=== PATIENT | female | born 1960 | race Caucasian/White ===

== ENCOUNTER → 2019-09-04 | Outpatient (REF) ==
[2019-09-05 13:50] LABS: RUBELLA IgG QUALITATIVE IMMUNE (IMMUNE)
== END ==
LOC: M LAB 08:04
PROVIDERS: ATTEND Nurse Practitioner Adult Health
DX: Z00.00 Encounter for general adult medical examination without abnormal findings (principal)

== ENCOUNTER → 2020-03-13 | Outpatient (CLI) | payer BC ==
--- NOTE | 2020-03-13 15:03 | REP ---
LEFT FOOT SERIES: Four views. HISTORY: Pain in the left foot and toes. FINDINGS: Four views of the left foot demonstrate overall normal mineralization. A small os naviculare and an ounce perineum are seen. There is a small plantar calcaneal spur. There is no evidence of fracture or other acute bony abnormality. Degenerative changes are seen at the 1st MTP joint. IMPRESSION: No acute bony abnormality. Osteoarthritic changes at the 1st MTP joint. Small heel spur. Electronically Signed by Krish Ruvalcaba MD 03/13/2020 03:07 P
== END ==
LOC: M RAD 12:53
PROVIDERS: ATTEND Nurse Practitioner Adult Health
DX: M79.672 Pain in left foot (principal); M79.675 Pain in left toe(s); M77.32 Calcaneal spur, left foot; M19.072 Primary osteoarthritis, left ankle and foot

== ENCOUNTER → 2020-11-13 | Outpatient (REF) | payer BC | LOC: M LAB REF 08:21 | PROVIDERS: ATTEND Radiology Diagnostic Radiology | DX: N63.11 Unspecified lump in the right breast, upper outer quadrant (principal) ==

== ENCOUNTER → 2020-11-21 | Outpatient (CLI) | payer BC | LOC: M PLALAB 08:08 | PROVIDERS: ATTEND Surgery | DX: Z13.79 Encounter for other screening for genetic and chromosomal anomalies (principal) ==

== ENCOUNTER → 2020-11-21 | Outpatient (REF) | payer BC ==
[2020-11-21 12:26] LABS: BLOOD UREA NITROGEN 16 MG/DL (7-18); CALCIUM LEVEL 9.4 MG/DL (8.8-10.2); CARBON DIOXIDE LEVEL 30 MEQ/L (21-32); CHLORIDE LEVEL 105 MEQ/L (98-107); CREATININE FOR GFR 0.84 MG/DL (0.55-1.30); GLOMERULAR FILTRATION RATE > 60.0 (>45); GLUCOSE, FASTING 93 MG/DL (70-100); POTASSIUM SERUM 3.9 MEQ/L (3.5-5.1); SODIUM LEVEL 139 MEQ/L (136-145)
== END ==
LOC: M PLALAB 08:07
PROVIDERS: ATTEND Surgery
DX: C50.911 Malignant neoplasm of unspecified site of right female breast (principal)

== ENCOUNTER → 2020-11-28 | Outpatient (CLI) | payer BC ==
[~2020-11-28] MED LIST: PROHANCE 279.3MG/ML 15ML VIAL As Ordered ONE; PROHANCE 279.3MG/ML 5ML VIAL As Ordered ONE
--- NOTE | 2020-11-28 17:07 | REP ---
INDICATION: MRI CLEARENCE. History of stapedectomy, middle ear surgery. COMPARISON: None. TECHNIQUE: PA and lateral views of the sinuses and head and neck region are performed. FINDINGS: No metallic foreign body is seen in the region of either petrous bone or middle ear. No intraorbital or other opaque foreign body is seen. Cleared for MRI. IMPRESSION: No metallic foreign body seen. <Electronically signed by Devin Ruvalcaba > 11/28/20 [id number]
--- NOTE | 2020-12-01 09:54 | REP ---
INDICATION: INVASIVE DUCTAL CARCINOMA RIGHT BREAST. Recent grade 2 invasive ductal carcinoma diagnosis. Evaluate extent of disease COMPARISON: Comparison is made with prior mammography dated October 03, 2020, October 29, 2020, and November 13, 2020. TECHNIQUE: Three Ximena MRI imaging was performed with a dedicated breast coil. Axial, coronal, and sagittal T1 and T2 weighted scans were obtained with and without fat saturation in the usual fashion. The study includes dynamically acquired post gadolinium-enhanced imaging with image subtraction. Maximum intensity projection and multi planar reformation imaging is included as well. This study is interpreted with the aid of VeriTainerD, an FDA approved computer aided detection (CAD) software program, on a dedicated breast MRI workstation. The gadolinium enhancement dose is 19 mL of intravenous ProHance. FINDINGS: There is a mild amount of fibroglandular tissue bilaterally corresponding with the mammographic pattern. There is mild background parenchymal enhancement. There is no evidence of axillary lymphadenopathy or significant breast cystic change. There is a needle biopsy marker clip artifact adjacent to a T2 hyperintense enhancing 10 mm nodule in the left breast superiorly upper outer quadrant corresponding to the stable previously biopsied nodule seen mammographically in 2016. This is compatible with a benign fibroadenoma. No other significant finding is seen in the left breast. On the right, superiorly at 12 o'clock adjacent to another needle biopsy marker clip, there is a suspicious linear area of enhancement and washout with mixed signal intensity on T2 weighted scan at 12 o'clock position in the right breast. This area corresponds to the known malignant lesion recently biopsied. It measures 2.6 cm anteroposterior by 0.5 cm craniocaudal by 0.4 cm right to left. No other suspicious abnormality is noted in the right breast. Subtraction images are otherwise unremarkable. IMPRESSION: BI-RADS category 6 known right breast malignancy. Suspicious biopsied lesion 12 o'clock position right breast. No other suspicious abnormality is seen in either breast on MRI scan. No evidence of adenopathy.. <Electronically signed by Devin Ruvalcaba > 12/01/20 [id number]
== END ==
LOC: M RAD 15:29
PROVIDERS: ATTEND Surgery
DX: C50.911 Malignant neoplasm of unspecified site of right female breast (principal); N63.21 Unspecified lump in the left breast, upper outer quadrant
CPT/HCPCS: 70250; A9576; C8908

== ENCOUNTER → 2020-12-04 | Outpatient (CLI) | payer BC ==
[~2020-12-04] MED LIST changes: +ANOR1AER IN; +CLAR10CA3 PO; +FLON1SPR NARES; -PROHANCE 279.3MG/ML 15ML VIAL As Ordered ONE; -PROHANCE 279.3MG/ML 5ML VIAL As Ordered ONE; +VITMTA PO
--- NOTE | 2020-12-05 03:09 | REPPI ---
INDICATION: Z01.818 PRE OP EXAM COMPARISON: None. TECHNIQUE: PA and lateral. FINDINGS: The mediastinum and cardiac silhouette are normal. The lung granados are clear and without acute consolidation, effusion, or pneumothorax. The skeletal structures are intact and old healed left rib fractures are noted. IMPRESSION: No acute cardiopulmonary process. <Electronically signed by Mitch Andrews > 12/05/20 [id number]
== END ==
LOC: M PLAIMG 14:32
PROVIDERS: ATTEND Surgery
DX: Z01.818 Encounter for other preprocedural examination (principal)

== ENCOUNTER → 2020-12-04 | Outpatient (CLI) | payer BC ==
--- NOTE | 2020-12-05 05:52 | REP ---
INDICATION: R59.9 PALPABLE LYMPH NODE COMPARISON: None. TECHNIQUE: Banegas scale and color B-mode and Doppler ultrasound evaluation of the right neck/palpable mass. FINDINGS: Directed ultrasound examination along the right posterior neck at the site of palpable mass demonstrates a normal appearing lymph node measuring 11 x 10 x 3 mm. Multiple normal bilateral subcentimeter lymph nodes are also identified and similar in morphology. IMPRESSION: Palpable mass corresponds to normal appearing lymph node. <Electronically signed by Mitch Andrews > 12/05/20 05
== END ==
LOC: M WHC 15:01
PROVIDERS: ATTEND Surgery
DX: R59.9 Enlarged lymph nodes, unspecified (principal)

== ENCOUNTER → 2020-12-11 | Outpatient (CLI) | payer BC ==
[~2020-12-11] MED LIST changes: +ULTR50TA8 PO
== END ==
LOC: M LABSMTC 11:53
PROVIDERS: ATTEND Anesthesiology
DX: Z01.818 Encounter for other preprocedural examination (principal); Z11.52 Encounter for screening for COVID-19

== ENCOUNTER 2020-12-16 06:37 | Day surgery (SDC) | payer BC ==
[~2020-12-16] VITALS: Ht 165.1 cm; Wt 84.4 kg
[~2020-12-16 06:37] MED LIST changes: +HEPARIN SOD (PORCINE) 5000UNITS/ML 1ML VIAL/SYRINGE SQ ONE; +LR 1,000 ML IV SCH; -ULTR50TA8 PO; +ceFAZolin SOD 2 GM in IV 1 EA IV ONE
[2020-12-16] MEDS ORDERED: LR 1,000 ML IV ONE (07:00)
[2020-12-16] MEDS ORDERED: LIDOCAINE 1% SDV 30ML VIAL As Ordered ONE (09:47)
[2020-12-16] MEDS ORDERED: BUPIVACAINE HCL 0.25% 30ML VIAL As Ordered ONE (09:47)
[2020-12-16] MEDS ORDERED: LIDOCAINE 2% 100MG/5ML SDV (FOR ANES.) As Ordered ONE (10:30)
[2020-12-16] MEDS ORDERED: fentaNYL 100 MCG/2 ML INJECTION (J3010) As Ordered ONE ×3 (10:30→15:30)
[2020-12-16] MEDS ORDERED: propofoL 200 MG/20 ML VIAL As Ordered ONE (10:30)
[2020-12-16] MEDS ORDERED: MIDAZOLAM INJ 2MG/2ML VIAL (J2250 PER 1MG) As Ordered ONE (10:30)
[2020-12-16] MEDS ORDERED: METOCLOPRAMIDE INJ 10MG/2ML VIAL (J2765 PER 1) As Ordered ONE (10:30)
[2020-12-16] MEDS ORDERED: ONDANSETRON 4MG/2ML VIAL As Ordered ONE (10:30)
[2020-12-16] MEDS ORDERED: dexameTHASONE 4 MG/ML 1ML VIAL (J1100 PER 1MG) As Ordered ONE (10:30)
[2020-12-16] MEDS ORDERED: ROCURONIUM BROMIDE 50 MG/5 ML VIAL As Ordered ONE (10:30)
[2020-12-16] MEDS ORDERED: ACETAMINOPHEN 1000MG 100ML IV BTL (OFIRMEV) (J0131 PER 10MG) As Ordered ONE (10:31)
--- NOTE | 2020-12-16 12:27 | REP ---
INDICATION: BIOPSY LEFT BREAST. COMPARISON: None. TECHNIQUE/RADIOTRACER AND DOSE: This procedure was performed by Jessica Pineda [facility], under the direct supervision of Dr. Ruvalcaba. Images were reviewed with Dr. Ruvalcaba prior to dictation. The risks and benefits of the procedure were explained to the patient and informed consent was obtained both orally and written. Directly prior to the start of the procedure, a formal timeout was done in the exam room. Using topical anesthetic and sterile technique 1.011 mCi of filtered Technetium-99m sulfur colloid was injected subdermally in 8 fractionated periareolar injections. FINDINGS: Images obtained 1 hour after injection show papo uptake in the right axilla. IMPRESSION: Postprocedural imaging shows papo uptake in the right axilla. <Electronically signed by Jessica Pineda > 12/16/20 1051 <Electronically signed by Devin Ruvalcaba > 12/16/20 1226
[2020-12-16] MEDS ORDERED: ULTR50TA8 PO (15:33)
[2020-12-16] MEDS: fentaNYL 100 MCG/2 ML INJECTION (J3010) IV PRN ×4 (15:35→16:20)
[2020-12-16] MEDS ORDERED: oxyCODONE 5MG TAB PO PRN (15:50)
[2020-12-16] MEDS ORDERED: HYDROMORPHONE HCL 0.5 MG/ 0.5 ML SYRINGE (J1170 PER 1) IV PRN (15:50)
[2020-12-16] MEDS ORDERED: ONDANSETRON 4MG/2ML VIAL IV PRN (15:50)
[2020-12-16] MEDS ORDERED: LR 1,000 ML IV SCH (15:50)
--- NOTE | 2020-12-16 16:36 | REP ---
INDICATION: RIGHT BREAST LUMPECTOMY. COMPARISON: Comparison right breast mammography November 13, 2020.. TECHNIQUE: Specimen radiography: Four views including photograph labeled right breast 12 o'clock. FINDINGS: Specimen radiography demonstrates a Acme needle wire localization device and a previously placed needle biopsy marker clip centrally located in the specimen. There appears to be a central slightly spiculated nodule. There also 2 calcifications adjacent to this. IMPRESSION: Specimen radiography shows a needle biopsy marker clip adjacent to the Acme needle localization wire. There also 2 nearby microcalcifications. <Electronically signed by Devin Ruvalcaba > 12/16/20 1600
--- NOTE | 2020-12-16 17:36 | REP ---
INDICATION: WIRE LOCAL BREAST LESION. COMPARISON: Comparison sonography November 13, 2020.. TECHNIQUE: Sonographic guidance. FINDINGS: Ultrasound guidance is provided to Dr. Lopez performed a wire localization procedure at the level of a previously placed HydroMARK marker clip under ultrasound guidance. IMPRESSION: Sonographic guidance. Procedural imaging. <Electronically signed by Devin Ruvalcaba > 12/16/20 0968
[2020-12-16 17:55] VITALS: BP 129/71
--- NOTE | 2020-12-20 23:24 | ROOPDOC ---
[facility] Report Of Operation Report of Operation DATE OF PROCEDURE: 12/16/20 PREPROCEDURE DIAGNOSES: Right breast cancer POSTPROCEDURE DIAGNOSES: Right breast cancer PROCEDURE: Right breast lumpectomy with intraop wire placement and right sentinel lymph node biopsy SURGEON: Dr Jose Venegas ANESTHESIA: general ESTIMATED BLOOD LOSS: minimal COMPLICATIONS: none REMARKS: open coil clop, nodular opacity, calcifications and the wire seen in the specimen, sentinel lymph nodes identified DESCRIPTION OF PROCEDURE: INDICATIONS: Ms. Yola Mercado is a 60-year-old woman who was found to have two new suspicious lesions on screening right breast mammogram. These were evaluated with US and one sonographic correlate was found. US guided biopsy of the 12:00 11 CFN sonographic mass came back as IDC, ER+, AR+, HER-2 negative, grade 2. Open coil clip was placed at this site. The second lesion was evaluated with stereotactic biopsy and came back as benign breast parenchyma with fibrocystic changes. Closed coil clip was placed at this site. Concordance of the biopsy results were confirmed by Dr Banegas from Radiology department. MRI of the breast was done and showed 2.6 cm enhancement around the superficial lesion which was proven to be cancer. No abnormal enhancement around the other lesion. No abnormal lymph nodes were seen. Surgical options were discussed with patient. She opted for breast conservative surgery with sentinel lymph node biopsy on the right. She was medically cleared for surgery by her primary care doctor. Risks and possible complications of surgical procedure including bleeding, in fection and injury to surrounding structures were explained to the patient and she wished to proceed. Consent was signed. My initials were placed on the operative site. Subcutaneous injection of 5000 units of heparin was done in Preop. The injection of radioactive tracer was done in radiology department preoperatively. Lymphoscintigraphy imaging was reviewed in preop. DETAILS: Patient was taken to the operating room and placed on the operating room table. A sign in was called stating patients name, date of and the procedure to be done. Preoperative antibiotics were infused. Smooth induction of general anesthesia was done. Patients hands were extended on arm rests. Care was taken not to over extend the arms. Pillow was placed under the knees and a foam was placed under the heels. Sequential compression devices were placed and assured to function correctly. Procedure was started with right breast intraop wire localization. Appropriate time out was done and patients name, date of , and the procedure to be done were confirmed. Right breast was cleaned by me. Intraoperative ultrasound was used to confirm location of the appropriate Hydromark clip at 12:00 11 CFN marking the location of the cancer. The other Hydromark was also seen in the beast but was not targeted for this procedure due to the benign biopsy results. Location of the 12:00 11 CFN target clip was marked on the skin as well. 21 G Kopans Breast Lesion Localization Needle was used to place 25 cm wire through the clip. The end of the wire was passed a centimeter deep. The images were captured confirming adequate placement of the localizing wire. Leather Polisher luis m sted with the wire placement. Next, patients right breast and axilla were prepped and draped in the usual fashion. Care was taken not to displace the wire. Appropriate time out was done again prior second part of the procedure. Patients name, date of , and the procedure to be done were confirmed. Procedure was started with sentinel lymph node biopsy. Neoprobe was used to locate area of maximum intensity of the signal. Local anesthetic using 1% lidocaine and 0.25 % Marcaine 50/50 mix was injected. An incision was made with scalpel number 15 at the inferior aspect of axillary hair line in the right axilla where the maximum signal was identified. The sharp and blunt dissection was continued through the subcutaneous adipose tissue. Clavipectoral fascia was opened. Neoprobe was used to guide the dissection. A palpable lymph node was identified and excised. This node did not have signal. A cluster of three high signal lymph nodes was identified in deep medial axilla and excised. The ex-vivo 10 second count was [id number]. Another lymph node with high signal was identified slightly lateral and posterior to the excised cluster. The ex-vivo 10 second count was 6624. There was additional area of high signal medially which likely corresponded to the area of cancer located medially to axilla. Another palpable deep axillary lymph node was found in the medial aspect of axilla and was excised. There was no signal associated with this node. 10 second background count prior to lumpectomy in axilla was 1826 and after the lumpectomy was 57. All the lymph node specimens were labeled with patients name and sent to pathology. No additional suspicious palpable lymph nodes were identified. Adequate hemostasis was assured. Additional local anesthetic was injected into surrounding tissues. Wound was irrigated. Clavipectoral fascia was closed with 3-0 Vicryl interrupted suture. Dermal layer was closed at the end of the case with 3-0 Monocryl and skin was closed with 4-0 Monocryl. Surgical glue was applied to the incision at the end of the procedure. Next, our attention was turned toward the right breast. Local anesthetic using 1% lidocaine and 0.25 % Marcaine 50/50 mix was injected at the site of planned periareolar incision. The incision was made with the scalpel. Subcutaneous skin flaps were raised and the guide wire was carefully pulled into the wound. Dissection was carries along the wire until the previously marked on the skin area of target lesion location was encountered. At this point, wider excision of the tissue surrounding the wire was done. The Hydromark clip was identified in the tissue with intraoperative hockey stick ultrasound probe. The end of the wire was identified with palpation. The lumpectomy specimen was carefully removed from the breast keeping its proper orientation and moved to the back table where margins were marked with the surgical inking kit following the standard colors recommendations. The specimen measured 5x 4 cm. Specimen was then placed on the grid and placed in [employer] Specimen Imaging System. The image revealed the wire, the open coil Hydromark clip, a nodular density and some calcifications in the specimen. The specimen was labeled with patients name and right lumpectomy and sent to pathology. Since the clip and nodular density were centrally located in the specimen, no additional margins were taken. Adequate hemostasis was assured. Additional local anesthetic was injected into surrounding tissues. Clips were placed to steve the cavity. space was approximated with 2-0 Vicryl. The dermis was closed with 3-0 Vicryl and skin was closed with 4-0 Monocryl. Surgical glue was placed over the incision. Patient emerged from the anesthesia without any problems. Fluffs were placed over the operative site and patients chest was wrapped snuggly in the KULWANT wrap. Sponge and instrument counts were done and were correct. Patient tolerated procedure well and was taken to recovery unit in stable condition. JOSE VENEGAS DO Dec 20, 2020 23:24
== END 2020-12-16 17:55 | disposition home or self-care (01) ==
LOC: M SDC 06:37
PROVIDERS: ATTEND Surgery
DX: C50.911 Malignant neoplasm of unspecified site of right female breast (principal); C77.3 Secondary and unspecified malignant neoplasm of axilla and upper limb lymph nodes; G43.909 Migraine, unspecified, not intractable, without status migrainosus; J44.9 Chronic obstructive pulmonary disease, unspecified; F41.9 Anxiety disorder, unspecified; Z79.899 Other long term (current) drug therapy; Z88.8 Allergy status to other drugs, medicaments and biological substances; Z88.2 Allergy status to sulfonamides; Z88.1 Allergy status to other antibiotic agents
CPT/HCPCS: 19125; 36415; 38525; 76942; 78195; 86850; 86900; 86901; 88305; 88307; A9541; J0131; J0690; J1100; J1644; J2250; J2405; J2765; J3010

== ENCOUNTER → 2021-01-01 | Outpatient (CLI) | payer BC ==
[~2021-01-01] MED LIST changes: -HEPARIN SOD (PORCINE) 5000UNITS/ML 1ML VIAL/SYRINGE SQ ONE; -LR 1,000 ML IV SCH; +ULTR50TA8 PO; -ceFAZolin SOD 2 GM in IV 1 EA IV ONE
== END ==
LOC: M ONCR 10:16
PROVIDERS: ATTEND Radiology Radiation Oncology
DX: C50.411 Malignant neoplasm of upper-outer quadrant of right female breast (principal)

== ENCOUNTER → 2021-01-21 | Outpatient (CLI) | payer BC ==
[~2021-01-21] MED LIST changes: +ACET-897 PO; +ALBU83IN INH; +COVI100V IM; +LETR2.5T2 PO; +NYST1POW9 TOP
--- NOTE | 2021-01-21 15:56 | DEXAMM ---
INDICATION: BREAST CA/ON ARIMATASE INHIB. COMPARISON: None. TECHNIQUE: Bone density was measured using dual-energy x-ray absorptionmetry (DEXA). FINDINGS: AP SPINE L1-L4 BMD 1.473 g/cm2 Young Adult T-Score 2.2 Age Matched Z-Score 3.5. LT FEMUR, TOTAL BMD 1.063 g/cm2 Young Adult T-Score 0.4 Age Matched Z-Score 1.4. LT NECK BMD 1.015 g/cm2 Young Adult T-Score -0.2 Age Matched Z-Score 1.1. RT FEMUR, TOTAL BMD 1.005 g/cm2 Young Adult T-Score 0.0 Age Matched Z-Score 0.9. RT NECK BMD 0.980 g/cm2 Young Adult T-Score -0.4 Age Matched Z-Score 0.9. IMPRESSION: There is normal bone density of the spine. There is normal bone density of the left hip. There is normal bone density of the right hip. FOLLOW-UP: Recommendation for the next bone density exam: 5 years. <Electronically signed by Devin Ruvalcaba > 01/21/21 [id number]
== END ==
LOC: M WHC 14:13
PROVIDERS: ATTEND Internal Medicine Medical Oncology
DX: C50.911 Malignant neoplasm of unspecified site of right female breast (principal); Z88.1 Allergy status to other antibiotic agents; Z88.2 Allergy status to sulfonamides; Z88.8 Allergy status to other drugs, medicaments and biological substances

== ENCOUNTER 2021-02-13 09:17 | Outpatient (RCR) | payer BC | END 2021-02-16 | LOC: M ONCR 09:17 | PROVIDERS: ATTEND General Practice | DX: C50.411 Malignant neoplasm of upper-outer quadrant of right female breast (principal) ==

== ENCOUNTER → 2021-02-25 | Outpatient (CLI) | payer BC ==
[~2021-02-25] MED LIST changes: +TRIA1CR80 TOP
--- NOTE | 2021-02-25 11:05 | REP ---
INDICATION: L3 DERMATONE NUMBNESS COMPARISON: None. TECHNIQUE: AP, lateral, bilateral oblique, and coned-down views of the lumbar spine. FINDINGS: Alignment and lordosis maintained. Moderate multilevel degenerative changes include endplate sclerosis, very early marginal spurring, and facet hypertrophy. Mild multilevel disc space narrowing is suggested. No acute fracture/compression injury or subluxation. IMPRESSION: Relatively mild/moderate multilevel degenerative changes. <Electronically signed by Mitch Andrews > 02/25/21 [id number]
== END ==
LOC: M WUC 10:19
PROVIDERS: ATTEND Nurse Practitioner Adult Health
DX: M51.36 Other intervertebral disc degeneration, lumbar region (principal); M25.78 Osteophyte, vertebrae

== ENCOUNTER 2021-03-02 09:16 | Outpatient (RCR) | payer BC ==
[~2021-03-02 09:16] MED LIST changes: -TRIA1CR80 TOP
[2021-03-02] MEDS ORDERED: TRIA1CR80 TOP (10:18)
== END 2021-03-18 ==
LOC: M ONCR 09:16
PROVIDERS: ATTEND General Practice
DX: C50.411 Malignant neoplasm of upper-outer quadrant of right female breast (principal)

== ENCOUNTER → 2021-03-12 | Outpatient (CLI) | payer BC ==
[~2021-03-12] MED LIST changes: +TRIA1CR80 TOP
--- NOTE | 2021-03-12 11:45 | RADENCPD ---
Date/Time of Encounter Date of Encounter: Mar 12, 2021 Time of Encounter: 11:42 Encounter Saw Yola briefly for concern of ongoing skin reaction. She tried to work a full shift last night, by the end pain in the right axilla was intense. On exam she has resolving CTCAE grade 2 skin reaction worst in the IMF and right axilla. I recommend continued topical analgesics and nonocclusive dressing with xeroform gauze and soft pad. She should minimize friction to promote re-epithelization and so I am taking her out of work until she heals. She will call us next week as to her progress and can call anytime in the interim if need arises. NESTOR FRANCO MD Mar 12, 2021 11:45
== END ==
LOC: M ONCR 11:16
PROVIDERS: ATTEND General Practice
DX: C50.411 Malignant neoplasm of upper-outer quadrant of right female breast (principal); L59.8 Other specified disorders of the skin and subcutaneous tissue related to radiation

== ENCOUNTER → 2021-04-02 | Outpatient (CLI) | payer BC ==
[~2021-04-02] MED LIST changes: +CALC-190 PO; +LUNE2TAB23 PO
--- NOTE | 2021-04-02 12:50 | RADENCPD ---
Date/Time of Encounter Date of Encounter: Apr 02, 2021 Time of Encounter: 12:48 Encounter Yola came in today for a skin check, 1 month post completion of RT to her right breast. She reports she is doing much better, the dry peeling is resolving and she has no real pain anymore. On exam she has resolving CTCAE grade 2 radiodermatitis in the inframammary fold on the right. She also has a wedge of hyperpigmentation in the right axilla which is improved from last visit. Overall she is doing well. Return to work documents provided. Will follow up with me in ~ 5 months NESTOR FRANCO MD Apr 02, 2021 12:49
== END ==
LOC: M ONCR 10:35
PROVIDERS: ATTEND General Practice
DX: C50.411 Malignant neoplasm of upper-outer quadrant of right female breast (principal); Z92.3 Personal history of irradiation

== ENCOUNTER → 2021-07-29 | Outpatient (CLI) | payer BC ==
[~2021-07-29] MED LIST changes: +EXEM25TA PO; +NAPR220C14 PO
--- NOTE | 2021-07-29 13:54 | REP ---
INDICATION: BONE PAIN, BREAST CA. COMPARISON: None. TECHNIQUE/RADIOTRACER AND DOSE: After the intravenous administration of 22.0 mCi of technetium 99 M MDP a total body bone scan was obtained. FINDINGS: Patchy increased activity is seen in the shoulders, elbows, wrists, knees, ankles, and feet. There is a single focus of increased activity seen in the C-spine on the right posteriorly at the C7-T1 level. IMPRESSION: Likely degenerative type uptake patterns as described above. There is no compelling evidence for metastatic disease. <Electronically signed by Kike Gonzales > 07/29/21 1544
== END ==
LOC: M RAD 09:33
PROVIDERS: ATTEND Internal Medicine Medical Oncology
DX: C50.911 Malignant neoplasm of unspecified site of right female breast (principal); M85.80 Other specified disorders of bone density and structure, unspecified site
CPT/HCPCS: 78306; A9503

== ENCOUNTER → 2021-08-07 | Outpatient (CLI) | payer BC ==
[~2021-08-07] MED LIST changes: +TAMO20TA8 PO
--- NOTE | 2021-08-07 17:40 | REP ---
INDICATION: R/O BLOOD CLOT COMPARISON: None. TECHNIQUE: Banegas scale and color Doppler evaluation using linear high frequency transducer. FINDINGS: Ultrasound examination of the right upper extremity deep venous structures including jugular, subclavian, axillary, brachial, cephalic and basilic veins demonstrate normal flow characteristics. There is no evidence for deep venous thrombosis. Contralateral subclavian vein is patent and normal. IMPRESSION: No evidence for deep venous thrombosis. <Electronically signed by Mitch Andrews > 08/07/21 1712
== END ==
LOC: M RAD 16:27
PROVIDERS: ATTEND Internal Medicine Medical Oncology
DX: M79.601 Pain in right arm (principal)

== ENCOUNTER → 2021-09-02 | Outpatient (CLI) | payer BC ==
--- NOTE | 2021-09-02 11:33 | RADONC ---
Radiation Oncology Hx/FUP Radiation Oncology Hx/FUP Date of Service: Sep 02, 2021 Pt Identifier Yola Mercado is a 61 year old female seen for a followup visit today at the department of radiation oncology for a history of right breast cancer [id number] ER/AR+ HER2- grade 2. She is s/p lumpectomy and SLNB on 12/17/[address] Lopez 1/ LN were positive. She then received adjuvant RT to the right whole breast 40 Gy in 15 fractions + 10 Gy in 5 fraction tumor bed boost completed 02/02/21-03/02/21. Diagnosis/Treatment History Oncologic History 10/2020 [place] a right breast lump 11/13/20 Biopsy showing IDC ER/AR+ HER2- grade 2 12/17/20 Lumpectomy and SLNB [id number] 09/24 LN+ 02/02/21-03/02/21 Adjuvant WBI 40 Gy in 15 fractions + 10 Gy in 5 fraction boost 03/2021-06/2021 Tried all 3 AI, failed d/t joint pains 07/2021 Started Swanson Test Due Next Last result Notes TSH, T4* 6m post-tx, then q1y N/A Carotid US* q10 y post-tx N/A Smoking cessation Assess annually if applicable N/A Screening CT chest q1y if eligible per USPSTF N/A Mammograms Min q1y, if breast conservation Sep neg CBC,CMP, Lipids q1y Per medical oncology DEXA q2y if on AI Per medical oncology Interval History Yola has some swelling in her breast, dependent portion, worse throughout the day. Achy. She also notes swelling in the RUE, soreness with it, for the last week. She has no carpal tunnel history. She has no impaired ROM. No LUE symptoms. Reports she had an US done last week which was negative for clot. She has preserved appetite and energy. Bust at work. Current Therapy Tamoxifen Stage Right breast cancer [id number] ER/AR+ HER2- grade 2 stage IA Social History: Never smoker Drinks 1 drink per week Allergies / Meds Allergies: Coded Allergies: Sulfa (Sulfonamide Antibiotics) (Verified Allergy, Mild, N/V RASH, 12/03/20) azithromycin (Verified Allergy, Unknown, HIVES, 12/03/20) nitrofurantoin (Verified Allergy, Unknown, JOINT PAIN, VISION CHANGES, SWELLINGHANDS, 12/03/20) sulfamethoxazole (Verified Allergy, Unknown, N/V RASH, 12/03/20) Home Meds Active Scripts Tamoxifen Citrate (Tamoxifen Citrate) 20 Mg Tablet, 20 MG PO DAILY, #90 TAB 1 Refill Prov:NITHIN SCHUSTER MD FACP 08/07/21 Reported Medications Naproxen Sodium (Aleve) 220 Mg Capsule, 220 MG PO QAM, CAP 05/05/21 Calcium Carbonate/Vitamin D3 (Calcium 1,000 + D3 Caplet) 1 Each Tablet, 1 TAB PO DAILY for 30 Days, #30 TAB 03/26/21 Eszopiclone (Lunesta) 2 Mg Tablet, 1 TAB PO QPMP PRN for sleep MDD 1 Tablet(s) for 30 Days, #30 TAB 03/26/21 Covid-19 Vacc,Mrna(Moderna)/Pf (Moderna Covid19 Vacc(Unapprov)) 100 Mcg/0.5 Ml Vial, 100 MCG IM, VIAL 01/15/21 Acetaminophen (Tylenol Extra Strength) 500 Mg Tablet, 2 TAB PO PRN, TAB 01/15/21 Albuterol Sulf (Albuterol Sulfate) 2.5 Mg/3 Ml Vial.neb, 2 PUFF INH PRN, MAGGIE 01/15/21 Multivitamins (Thera M Plus Tablet) 1 Each Tablet, 2 TAB PO DAILY, TAB 12/03/20 Umeclidinium Brm/Vilanterol Tr (Anoro Ellipta 62.5-25 Mcg INH) 1 Each Blst.w.dev, 1 PUFF IN DAILY 12/03/20 Fluticasone Propionate (Flonase Allergy Relief) 9.9 Ml Chinquapin.susp, 1 SPRAY NARES DAILY, SPR 12/03/20 Loratadine (Claritin) 10 Mg Capsule, 10 MG PO DAILY, CAP 12/03/20 Review of Systems Review of Systems Constitutional: Denies: Fatigue, Weight Loss Eyes: Denies: Pain HEENT: Denies: Head Aches Skin: Denies: Rash, Lesions Breast: Reports: Breast Skin Changes, Breast Pain or Tenderness; Denies: New Breast Lumps / Masses, Nipple Retraction, Nipple Discharge Pulmonary: Denies: Dyspnea Cardiovascular: Denies: Chest Pain Gastrointestinal: Denies: Abdominal Pain Neurological: Denies: Weakness, Numbness Psych: Reports: Mood Normal Physical Examination Vital Signs Wt 188 lbs T 98.8 P 73 RR 18 BP 127/81 O2 99% Pain 0 Fatigue 0 General Exam: Alert, Cooperative, No Acute Distress Eye Exam: PERRLA, EOMI ENT EXAM: Atraumatic Neck Exam: Supple; Negative: Lymphadenopathy Chest Exam: Clear to auscultation Heart Exam: Rate Normal Breast Exam: Symmetric Bilaterally, Skin Changes (Residual hyperpigmentation right breast), Other Breast Findings (There is palpable dependent edema in the right inferior breast with skin pitting. There are no palpable lesions BL in the breasts or axillae. There is no palpable edema in the RUE. Tinel and carolyn sign negative); Negative: Lumps or Masses, Nipple Retraction Abdomen Exam: Soft Extremity Exam: Negative: Edema Skin Exam: Nl turgor and temperature Neuro Exam: Normal Gait, Normal Speech, Cranial Nerves 3-12 NL Psych Exam: Mental status NL Diagnostic and Laboratory Diagnostic Review Radiologic images, relevant labs and pathology reports were personally reviewed and discussed with Ms. Mercado. Assessment and Plan Impression Assessment Ms. Mercado is a 61 year old female with a history of right breast cancer [id number] ER/AR+ HER2- grade 2. She is s/p lumpectomy and SLNB on 12/17/[address] Lopez 09/24 LN were positive. She then received adjuvant RT to the right whole breast 40 Gy in 15 fractions + 10 Gy in 5 fraction tumor bed boost completed 02/02/21-03/02/21. She has no evidence of disease on exam today. She does have residual lymphedema in the right breast, and per her report the RUE. I explained that this is a sequelae of surgery and RT, which is more common in larger breasted women. I will refer her to PT/OT for lymphedema therapy. We discussed that the condition is manageable but chronic in nature. I will see her back in 6 months, or sooner if needed. Performance Status ECOG 0 Plan PT/OT referral for lymphedema Follow up in 6 months Ms. Mercado was encouraged to call with questions or concerns in the interim period. Billing Statement Total time of [31] minutes was spent preparing for the visit [2], obtaining HPI [7], examining the patient [5], reviewing diagnostic tests [1], discussing management options [6], coordinating care [3], and writing this note [7]. NESTOR FRANCO MD Sep 02, 2021 11:33
== END ==
LOC: M ONCR 10:00
PROVIDERS: ATTEND General Practice
DX: C50.411 Malignant neoplasm of upper-outer quadrant of right female breast (principal); I89.0 Lymphedema, not elsewhere classified; Z92.3 Personal history of irradiation

== ENCOUNTER → 2021-10-20 | Outpatient (CLI) | payer BC | LOC: M WHC 10:46 | PROVIDERS: ATTEND Surgery | DX: C50.911 Malignant neoplasm of unspecified site of right female breast (principal) | CPT/HCPCS: 76642; 77066; G0279 ==

== ENCOUNTER → 2022-01-07 | Outpatient (CLI) | payer BC ==
[2022-01-07 11:05] LABS: CHOLESTEROL RISK RATIO 3.081 (<5)
== END ==
LOC: M PLALAB 07:54
PROVIDERS: ATTEND Nurse Practitioner Adult Health
DX: Z13.220 Encounter for screening for lipoid disorders (principal)

== ENCOUNTER → 2022-01-07 | Outpatient (CLI) | payer BC ==
[2022-01-07 10:28] LABS: BASO % 0.8 % (0.0-1.0); HEMATOCRIT 42.5 % (36.0-47.0); HEMOGLOBIN 14.2 g/dl (12.0-15.5); LYMPH # 1.5 10^3/uL (1.5-5.0); LYMPH % 38.5 % (24.0-44.0); MEAN CORPUSCULAR HEMOGLOBIN 30.7 pg (27.0-33.0); MEAN CORPUSCULAR HGB CONC 33.4 g/dl (32.0-36.5); MEAN CORPUSCULAR VOLUME 91.8 fl (80.0-96.0); MONO # 0.3 10^3/uL (0.0-0.8); MONO % 8.2 % (2.0-8.0); NEUTROPHILS % 51.2 % (36.0-66.0); PLATELET COUNT, AUTOMATED 226 10^3/uL (150-450); RED BLOOD COUNT 4.63 10^6/uL (4.00-5.40); WHITE BLOOD COUNT 3.9 10^3/uL (4.0-10.0)
[2022-01-07 11:05] LABS: ALT/SGPT 26 U/L (12-78); BILIRUBIN,TOTAL 0.5 MG/DL (0.2-1.0); BLOOD UREA NITROGEN 19 MG/DL (7-18); CALCIUM LEVEL 9.1 MG/DL (8.8-10.2); CARBON DIOXIDE LEVEL 30 MEQ/L (21-32); CHLORIDE LEVEL 108 MEQ/L (98-107); CREATININE FOR GFR 0.73 MG/DL (0.55-1.30); GLOMERULAR FILTRATION RATE > 60.0 (>45); GLUCOSE, FASTING 96 MG/DL (70-100); POTASSIUM SERUM 4.2 MEQ/L (3.5-5.1); SODIUM LEVEL 140 MEQ/L (136-145); TOTAL PROTEIN 6.8 GM/DL (6.4-8.2)
== END ==
LOC: M PLALAB 07:51
PROVIDERS: ATTEND Internal Medicine Medical Oncology
DX: C50.919 Malignant neoplasm of unspecified site of unspecified female breast (principal)

== ENCOUNTER → 2022-03-03 | Outpatient (CLI) | payer BC ==
[~2022-03-03] MED LIST changes: +ALBU2.5V10 INH; -ALBU83IN INH
== END ==
LOC: M ONCR 10:49
PROVIDERS: ATTEND General Practice
DX: C50.411 Malignant neoplasm of upper-outer quadrant of right female breast (principal); R60.9 Edema, unspecified; Z79.51 Long term (current) use of inhaled steroids; Z79.810 Long term (current) use of selective estrogen receptor modulators (SERMs); Z79.899 Other long term (current) drug therapy; Z88.1 Allergy status to other antibiotic agents; Z88.2 Allergy status to sulfonamides; Z92.3 Personal history of irradiation

== ENCOUNTER → 2022-06-17 | Outpatient (CLI) | payer BC, OTHER | LOC: M WHC 08:45 | PROVIDERS: ATTEND Surgery | DX: N63.10 Unspecified lump in the right breast, unspecified quadrant (principal) ==

== ENCOUNTER → 2022-07-14 | Outpatient (REF) | payer BC, OTHER ==
[~2022-07-14] MED LIST changes: +ALBU8.5H
[2022-07-14 09:39] LABS: BASO % 0.3 % (0.0-1.0); EOS # 0.1 10^3/uL (0.0-0.5); EOS % 1.8 % (0.0-3.0); HEMATOCRIT 41.8 % (36.0-47.0); HEMOGLOBIN 13.5 g/dl (12.0-15.5); LYMPH # 1.8 10^3/uL (1.5-5.0); LYMPH % 46.1 % (24.0-44.0); MEAN CORPUSCULAR HEMOGLOBIN 29.9 pg (27.0-33.0); MEAN CORPUSCULAR HGB CONC 32.3 g/dl (32.0-36.5); MEAN CORPUSCULAR VOLUME 92.7 fl (80.0-96.0); MONO # 0.3 10^3/uL (0.0-0.8); MONO % 8.1 % (2.0-8.0); NEUTROPHILS # 1.7 10^3/uL (1.5-8.5); NEUTROPHILS % 43.7 % (36.0-66.0); PLATELET COUNT, AUTOMATED 229 10^3/uL (150-450); RED BLOOD COUNT 4.51 10^6/uL (4.00-5.40); WHITE BLOOD COUNT 3.8 10^3/uL (4.0-10.0)
[2022-07-14 10:13] LABS: ALBUMIN 3.8 GM/DL (3.2-5.2); ALT/SGPT 31 U/L (12-78); BILIRUBIN,TOTAL 0.5 MG/DL (0.2-1.0); BLOOD UREA NITROGEN 16 MG/DL (7-18); CALCIUM LEVEL 8.9 MG/DL (8.8-10.2); CARBON DIOXIDE LEVEL 27 MEQ/L (21-32); CHLORIDE LEVEL 108 MEQ/L (98-107); CHOLESTEROL LEVEL 163 MG/DL (<200); CHOLESTEROL RISK RATIO 3.468 (<5); CREATININE FOR GFR 0.71 MG/DL (0.55-1.30); GLOMERULAR FILTRATION RATE > 60.0 (>45); GLUCOSE, FASTING 99 MG/DL (70-100); HDL CHOLESTEROL 47 MG/DL (>40); LDL CHOLESTEROL 85 MG/DL (<100); NON-HDL-C 116 MG/DL; SODIUM LEVEL 141 MEQ/L (136-145); TOTAL PROTEIN 6.9 GM/DL (6.4-8.2); TRIGLYCERIDES LEVEL 155 MG/DL (<150)
== END ==
LOC: M LAB REF 09:12
PROVIDERS: ATTEND Nurse Practitioner Adult Health
DX: F41.9 Anxiety disorder, unspecified (principal); C50.211 Malignant neoplasm of upper-inner quadrant of right female breast; I10 Essential (primary) hypertension

== ENCOUNTER 2022-07-16 10:29 | Outpatient (RCR) | payer BC, OTHER | END 2022-07-19 23:59 | disposition home or self-care (01) | LOC: M PT 10:29 | PROVIDERS: ATTEND Surgery | DX: I89.0 Lymphedema, not elsewhere classified (principal) ==

== ENCOUNTER 2022-07-26 10:43 | Outpatient (RCR) | payer BC, OTHER ==
[2022-08-02] MEDS ORDERED: TAMO20TA8 PO (17:01)
== END 2022-08-18 ==
LOC: M PT 10:43
PROVIDERS: ATTEND Surgery
DX: I89.0 Lymphedema, not elsewhere classified (principal)

== ENCOUNTER → 2023-01-03 | Outpatient (CLI) | payer BC, OTHER | LOC: M WHC 12:28 | PROVIDERS: ATTEND Nurse Practitioner Women's Health | DX: D05.11 Intraductal carcinoma in situ of right breast (principal) | CPT/HCPCS: 77066; G0279 ==

== ENCOUNTER 2023-01-25 14:31 | Outpatient (RCR) | payer BC, OTHER ==
[2023-01-28] MEDS ORDERED: TAMO20TA8 PO (10:14)
== END 2023-02-16 ==
LOC: M PT 14:31
PROVIDERS: ATTEND Surgery
DX: I89.0 Lymphedema, not elsewhere classified (principal)

== ENCOUNTER → 2023-01-28 | Outpatient (REF) | payer OTHER, BC ==
[2023-01-28 10:18] LABS: CHOLESTEROL RISK RATIO 3.38 (<5); HDL CHOLESTEROL 45.5 MG/DL (>40); LDL CHOLESTEROL 84.3 MG/DL (<100); NON-HDL-C 108.5 MG/DL
== END ==
LOC: M LAB REF 09:33
PROVIDERS: ATTEND Nurse Practitioner Adult Health
DX: I10 Essential (primary) hypertension (principal)

== ENCOUNTER → 2023-03-10 | Outpatient (CLI) | payer BC, OTHER ==
[~2023-03-10] MED LIST changes: +FLUC100T3 PO
== END ==
LOC: M ONCR 08:54
PROVIDERS: ATTEND General Practice
DX: C50.911 Malignant neoplasm of unspecified site of right female breast (principal); B37.89 Other sites of candidiasis; I89.0 Lymphedema, not elsewhere classified; Z71.2 Person consulting for explanation of examination or test findings; Z79.51 Long term (current) use of inhaled steroids; Z79.810 Long term (current) use of selective estrogen receptor modulators (SERMs); Z79.899 Other long term (current) drug therapy; Z88.1 Allergy status to other antibiotic agents; Z88.2 Allergy status to sulfonamides; Z88.8 Allergy status to other drugs, medicaments and biological substances; Z92.3 Personal history of irradiation; Z98.890 Other specified postprocedural states

== ENCOUNTER → 2024-01-24 | Outpatient (CLI) | payer BC ==
[~2024-01-24] MED LIST changes: -LUNE2TAB23 PO; +LUNE2TAB28 PO
== END ==
LOC: M WHC 09:31
PROVIDERS: ATTEND Nurse Practitioner
DX: C50.919 Malignant neoplasm of unspecified site of unspecified female breast (principal); Z79.811 Long term (current) use of aromatase inhibitors

== ENCOUNTER → 2024-01-24 | Outpatient (CLI) | payer BC | LOC: M WHC 09:32 | PROVIDERS: ATTEND Nurse Practitioner Women's Health | DX: C50.911 Malignant neoplasm of unspecified site of right female breast (principal) ==

== ENCOUNTER → 2024-03-09 | Outpatient (CLI) | payer BC | LOC: M ONCR 08:47 | PROVIDERS: ATTEND General Practice | DX: Z08 Encounter for follow-up examination after completed treatment for malignant neoplasm (principal); Z85.3 Personal history of malignant neoplasm of breast; Z71.2 Person consulting for explanation of examination or test findings; Z88.1 Allergy status to other antibiotic agents; Z88.2 Allergy status to sulfonamides; Z88.8 Allergy status to other drugs, medicaments and biological substances; Z79.810 Long term (current) use of selective estrogen receptor modulators (SERMs); Z79.1 Long term (current) use of non-steroidal anti-inflammatories (NSAID); Z79.51 Long term (current) use of inhaled steroids; Z79.899 Other long term (current) drug therapy; Z92.3 Personal history of irradiation; Z98.890 Other specified postprocedural states ==

== ENCOUNTER → 2025-01-22 | Outpatient (REF) | payer BC, OTHER ==
[~2025-01-22] MED LIST changes: +NYST1POW3 TOP; -NYST1POW9 TOP
== END ==
LOC: M LAB REF 14:01
PROVIDERS: ATTEND Nurse Practitioner Adult Health
DX: Z85.3 Personal history of malignant neoplasm of breast (principal)

== ENCOUNTER → 2025-01-28 | Outpatient (CLI) | payer BC | LOC: M WHC 13:16 | PROVIDERS: ATTEND Internal Medicine Medical Oncology | DX: Z85.3 Personal history of malignant neoplasm of breast (principal); R92.313 Mammographic fatty tissue density, bilateral breasts; Z98.890 Other specified postprocedural states ==

== ENCOUNTER → 2025-05-14 | Outpatient (REF) | payer MEDICARE, OTHER | LOC: M LAB REF 17:36 | PROVIDERS: ATTEND Nurse Practitioner Adult Health | DX: M54.50 Low back pain, unspecified (principal) ==

== ENCOUNTER → 2025-05-14 | Outpatient (CLI) | payer MEDICARE, BC | LOC: M WUC 14:09 | PROVIDERS: ATTEND Nurse Practitioner Adult Health | DX: R07.89 Other chest pain (principal); M54.50 Low back pain, unspecified ==

== ENCOUNTER → 2025-05-16 | Outpatient (CLI) | payer MEDICARE, BC | LOC: M WHC 09:11 | PROVIDERS: ATTEND Nurse Practitioner Adult Health | DX: R10.11 Right upper quadrant pain (principal); R16.0 Hepatomegaly, not elsewhere classified; Z90.49 Acquired absence of other specified parts of digestive tract ==

== ENCOUNTER → 2025-06-27 | Outpatient (REF) | payer MEDICARE, BC | LOC: M LAB REF 12:27 | PROVIDERS: ATTEND Nurse Practitioner Adult Health | DX: Z85.3 Personal history of malignant neoplasm of breast (principal); C50.211 Malignant neoplasm of upper-inner quadrant of right female breast ==